=== PATIENT | male | born 1975 | race Caucasian/White ===

== ENCOUNTER 2016-05-02 19:27 | Emergency (ER) ==
[2016-05-02] MEDS ORDERED: ASPIRIN PO STA (19:29)
[2016-05-02] MEDS ORDERED: NITROGLYCERIN SL PRN (19:29)
--- NOTE | 2016-05-02 19:34 | ED EKG INTERP ---
EKG Interpretation - EKG Time of EKG reading by physician:: 19:33 EKG Read and Signed by:: Ashwin Joyce EKG Interpretation (*Must complete 3 of following elements*): Abnormal (Minimal voltage criteria for LVH, may be normal variant; T wave abnormality, consider inferolateral ischemia) Rate: 96 Rhythm: Normal sinus rhythm Attestation - Scribe Verification/Attestation Scribe:: Iván Lee Acting as Scribe for:: Ashwin Joyce Scribe documention review:: This chart was documented by a scribe and accurately reflects the service the provider performed and the decisions made by the provider.
[2016-05-02 20:17] LABS: MANUAL DIFF NEEDED? NO
--- NOTE | 2016-05-02 20:17 | PROVIDER DOCUMENTATION ---
HPI-Chest Pain - General Source: patient - History of Present Illness-CP Location: reports: other (L anterior chest) Chest Pain Radiation: reports: back (R scapula) Quality of Pain: reports: burning, other ("Feels like heartburn") Severity in ED: severe Onset/Duration: 1-3 hours ago Timing: still present, constant Modifying Factors: worse with: breathing Associated Symptoms: reports: back pain (R scapula), diaphoresis, fever/chills, heartburn, nausea, vomiting. denies: abdominal pain, dizziness, edema, fatigue , headache, rash, shortness of breath, swelling/lump in chest, syncope, weakness <Iván Lee - Last Filed: 05/02/16 20:46> <Ashwin Joyce - Last Filed: 05/02/16 23:21> - General Chief Complaint: Chest Pain Stated Complaint: CP, GALBLADDER PAIN Time Seen by Provider: 05/02/16 19:33 Allergies/Adverse Reactions: Patient Allergies Allergy/AdvReac Type Severity Reaction Status Date / Time codeine AdvReac Severe NAUSEA/VOMI Verified 05/02/16 19:38 TING Home Medications: Home Medication List Medication Instructions Recorded Confirmed Last Taken Type Hydrocodone/Acetaminophen [[place] 1 each PO Q4-6H PRN PRN #20 tablet 05/02/16 Unknown Rx 7.5-325 Tablet] Ketorolac [Toradol] 10 mg PO Q6H PRN PRN #20 tablet 05/02/16 Unknown Rx Ondansetron [Zofran Odt] 8 mg PO Q8H PRN #20 tab.rapdis 05/02/16 Unknown Rx - History of Present Illness-CP Nature of Presenting Problem: Pt is a 40 yom who presents to ER with CC of L anterior chest pain that radiates straight through to his R scapula with onset of 1 hour and 40 minutes ago. Pt reports that he was sen at [facility] yesterday and diagnosed with gall stones and told that he would need to call his surgeon, but to come to ER if symptoms change or get worse. Pt reports that his C/P is new, and describes it as feeling like heartburn. (Iván Lee) Review of Systems - Adult - REVIEW OF SYSTEMS - ADULT Constitutional: reports: chills, night sweats. denies: fever, fatique Eyes: reports: no symptoms reported Ears, Nose, Mouth & Throat: reports: no symptoms reported Cardiovascular: reports: chest pain. denies: edema, heart murmur, irregular heart rate, palpitations, poor circulation, syncope Respiratory: reports: no symptoms reported Gastrointestinal: reports: abdominal pain, frequent heartburn, nausea, poor appetite, vomiting. denies: hematemesis, constipation, diarrhea, difficulty swallowing, rectal bleeding Genitourinary: reports: no symptoms reported Musculoskeletal: reports: back pain (R scapula). denies: bone pain, frequent leg cramps, joint pain, joint swelling, muscle aches, muscle weakness, neck pain Integumentary: reports: no symptoms reported Neurological: reports: no symptoms reported Psychiatric: reports: no symptoms reported Endocrine: reports: no symptoms reported Hematologic/Lymphatic: reports: no symptoms reported Allergic/Immunologic: reports: no symptoms reported All Other Systems: Reviewed and Negative <Iván Lee - Last Filed: 05/02/16 20:46> Past History - Adult - PAST MEDICAL HISTORY-ADULT Review of Records: reports: Nursing Assessment Review, Medications Reviewed - IMMUNIZATION STATUS Childhood Immunizations: See Nurse Assessment Flu Vaccine: See Nurse Assessment <Iván Lee - Last Filed: 05/02/16 20:46> Physical Exam-General - PHYSICAL EXAM-ADULT Initial Vital Signs Reviewed: Yes - CONSTITUTIONAL General Appearance: appears well, alert, moderate distress, anxious. negative: obese, thin, obtunded, combative - RESPIRATORY Respiratory: chest non-tender, lungs clear, normal breath sounds. negative: respiratory distress, decreased breath sounds, accessory muscle use, wheezing - CARDIOVASCULAR Cardiovascular: normal peripheral pulses, regular rate, rhythm (borderline tachycardic), other (HTN (200/100)) - CHEST (BREASTS) Chest/Breast: no masses/lumps, no tenderness. negative: nipple discharge, tenderness, mass/lump noted - GASTROINTESTINAL (ABDOMEN) Abdominal Exam: normal bowel sounds, non tender, soft. negative: abnormal bowel sounds, distended, tenderness, mass - MUSCULOSKELETAL Back Exam: no CVA tenderness, no vertebral tenderness. negative: CVA tenderness , decreased range of motion, muscle spasm, swelling, vertebral tenderness Extremity: normal range of motion, non-tender, normal gait. negative: deformity , erythema, inflammation, pedal edema, swelling, tenderness - NEUROLOGIC Neurologic: grossly normal, no motor/sensory deficits - PSYCHIATRIC Psych/Mental Status: normal thought content, normal thought process, oriented x 3, anxious <Iván Lee - Last Filed: 05/02/16 20:46> Progress - REASSESSMENT Reassessment #1 Time Reassessed: 20:46 Status: other (Dr. Jyoce discussed results of pt's first set of lab results and continued POC.) - XRAY 1 XRAY: Bilateral XRAY Study: Chest Impression: See EMR Report XRAY Interpretation: Normal <Iván Lee - Last Filed: 05/02/16 20:46> Departure <Iván Lee - Last Filed: 05/02/16 20:46> - Departure Time of Disposition Order: 23:16 Certified Medical Emergency: Emergent <Ashwin Joyce - Last Filed: 05/02/16 23:21> - Departure DIAGNOSIS: Biliary colic Disposition: HOME 01 Condition: Good Additional Instructions: ED Follow Up Instructions: You have been treated by a care provider in the Emergency Department. These instructions are being provided to you so you can have an understanding of how to care for yourself upon discharge. Upon discharge from the Emergency Department, you are responsible for making arrangements for follow-up care by a physician of your choice. Take all prescribed medications as directed. Return to the Emergency Department immediately for any new or worsening symptoms. You may call the Physician Referral phone number at [phone] to obtain a list of Physicians who are taking new patients. Prescriptions: Hydrocodone/Acetaminophen [G[place] 7.5-325 Tablet] 1 each PO Q4-6H PRN PRN #20 tablet PRN Reason: Pain Ketorolac [Toradol] 10 mg PO Q6H PRN PRN #20 tablet PRN Reason: Pain Ondansetron [Zofran Odt] 8 mg PO Q8H PRN #20 tab.rapdis Referrals: None,PCP [Primary Care Provider] - Cristian Manzo MD [STAFF PHYSICIAN] - Attestation - Scribe Verification/Attestation Scribe:: Iván Lee Acting as Scribe for:: Ashwin Joyce Scribe documention review:: This chart was documented by a scribe and accurately reflects the service the provider performed and the decisions made by the provider. <Iván Lee - Last Filed: 05/02/16 20:46> Physician Attestation
[2016-05-02 20:18] LABS: BASO% 0.3 % (0.0-0.8); EOS# 0.13 X1000 (0.0-0.7); EOS% 1.1 % (0.0-10.0); HEMATOCRIT 49.8 % (42.0-52.0); IMM GRAN# 0.03 X1000 (0.0-0.04); IMM GRAN% 0.2 % (0.0-0.5); LYMPH# 2.54 X1000 (1.2-3.4); MCH 29.2 PG (27-31); MCHC 34.1 g/dL (33-37); MCV 85.6 FL (81-99); MONO# 1.19 X1000 (0.11-0.59); MONO% 9.9 % (1.7-9.3); MPV 10.2 FL (7.4-10.4); NEUT% 67.5 % (42.2-75.2); PLT 275 X1000 (130-400); RBC 5.82 XMIL (4.7-6.1)
[2016-05-02] MEDS ORDERED: ZOFRAN IV ONE (20:23)
[2016-05-02] MEDS ORDERED: TORADOL IV ONE (20:23)
[2016-05-02] MEDS ORDERED: DILAUDID IV ONE (20:23)
[2016-05-02] MEDS ORDERED: LABETALOL IV ONE (20:25)
[2016-05-02 20:27] LABS: INR 1.07; PROTIME 11.3 Seconds (9.2-11.7); PTT 22.3 Seconds (22.0-36.0)
[2016-05-02 20:32] LABS: CALCIUM 9.4 mg/dL (8.8-10.2); POTASSIUM 4.2 mmol/L (3.5-5.1); TOTAL BILIRUBIN 0.33 mg/dL (0.20-1.00); TOTAL PROTEIN 6.9 g/dL (6.3-8.3)
[2016-05-02 20:53] LABS: CK INDEX 1.7 (0.0-2.5); CK-MB 6.07 ng/mL (0.0-5.0)
--- NOTE | 2016-05-02 22:26 | ED EKG INTERP ---
EKG Interpretation - EKG Time of EKG reading by physician:: 22:18 EKG Read and Signed by:: Ashwin Joyce EKG Interpretation (*Must complete 3 of following elements*): Abnormal (ST & T wave abnormality, consider inferolateral ischemia) Rate: 82 Rhythm: Normal sinus rhythm Attestation - Scribe Verification/Attestation Scribe:: Iván Lee Acting as Scribe for:: Ashwin Joyce Scribalexandra documention review:: This chart was documented by a scribe and accurately reflects the service the provider performed and the decisions made by the provider.
[2016-05-02 23:16] LABS: CK INDEX 1.7 (0.0-2.5); CK-MB 5.43 ng/mL (0.0-5.0)
[2016-05-02 23:25] VITALS: BP 132/86
--- NOTE | 2016-05-03 07:37 | EKG Report ---
Test Performed on : 05/02/2016 10:18:51 PM Test Reason : cp Blood Pressure : / mmHG Vent. Rate : 082 BPM Atrial Rate : 082 BPM P-R Int : 186 ms QRS Dur : 082 ms QT Int : 342 ms P-R-T Axes : 046 062 -55 degrees QTc Int : 399 ms Normal sinus rhythm. ST & T wave abnormality, consider inferolateral ischemia Abnormal ECG When compared with ECG of 02-MAY-2016 19:32, (Unconfirmed) No significant change was found Unconfirmed Result
--- NOTE | 2016-05-03 07:40 | EKG Report ---
Test Performed on : 05/02/2016 7:32:33 PM Test Reason : Chest Pain Blood Pressure : / mmHG Vent. Rate : 096 BPM Atrial Rate : 096 BPM P-R Int : 168 ms QRS Dur : 082 ms QT Int : 318 ms P-R-T Axes : 054 076 -72 degrees QTc Int : 401 ms Normal sinus rhythm. Minimal voltage criteria for LVH, may be normal variant T wave abnormality, consider inferolateral ischemia Abnormal ECG When compared with ECG of 09-JUN-2009 15:46, Vent. rate has increased BY [address] no longer elevated in Inferior leads ST no longer elevated in Lateral leads T wave inversion now evident in Inferior leads T wave inversion now evident in Lateral leads Unconfirmed Result
--- NOTE | 2016-05-03 08:36 | Diag Imaging Result Document ---
PROCEDURE NAME: CHEST-2 VIEWS - 05/02/2016 FRONTAL AND LATERAL CHEST, TWO VIEWS: FINDINGS: The lungs are well expanded. The heart is not enlarged. The vessels are not distended. There are no infiltrates. No pleural effusions. No consolidation. No free air beneath the diaphragm. IMPRESSION: No acute abnormality.
== END 2016-05-02 23:32 | disposition home or self-care (01) ==
LOC: ED 19:27
DX: K80.50 Calculus of bile duct without cholangitis or cholecystitis without obstruction (principal); R07.9 Chest pain, unspecified; R68.83 Chills (without fever); R61 Generalized hyperhidrosis; R10.9 Unspecified abdominal pain; R12 Heartburn; R11.2 Nausea with vomiting, unspecified; M25.511 Pain in right shoulder; R00.0 Tachycardia, unspecified; I10 Essential (primary) hypertension; R94.31 Abnormal electrocardiogram [ECG] [EKG]
CPT/HCPCS: 71020; 80053; 82550; 82553; 83690; 83735; 83880; 84484; 85025; 85610; 85730; 93005; J1170; J1885; J2405

== ENCOUNTER 2016-05-06 09:50 | Day surgery (SDC) ==
[2016-05-06] MEDS ORDERED: MARCAINE 0.25% PF/EPI 1:200,000 ONE (11:59)
[2016-05-06] MEDS ORDERED: LR 1,000 ML ONE (11:59)
[2016-05-06] MEDS ORDERED: SODIUM CHLORIDE 0.9% ONE (11:59)
[2016-05-06] MEDS: KEFZOL 2 GM/D5W 50 ML ONE ×2 (12:21→12:38)
[2016-05-06] MEDS: LR 1,000 ML ONE ×2 (12:22→12:38)
[2016-05-06] MEDS: DILAUDID ONE ×2 (14:25→14:30)
--- NOTE | 2016-05-06 14:37 | OPERATIVE NOTE ---
PROCEDURE DATE: 05/06/2016 PREOPERATIVE DIAGNOSIS: Symptomatic cholelithiasis. POSTOPERATIVE DIAGNOSIS: Symptomatic cholelithiasis. PROCEDURE PERFORMED: Laparoscopic cholecystectomy. ESTIMATED BLOOD LOSS: 15 mL. COMPLICATIONS: None. ANESTHESIA: General. SPECIMENS: Gallbladder. OPERATIVE INDICATION: This is a 40-year-old male with colicky right upper quadrant abdominal pain. There were stones on ultrasound. LFTs were normal. Cholecystectomy was indicated. OPERATIVE FINDINGS: There was a mildly inflamed gallbladder that was quite distended with small stones within. Otherwise, normal anatomy. Operative risks benefits and alternatives with the patient and he consented to the procedure. DETAILS OF OPERATION: He was seen in the preoperative area. Surgery to be performed confirmed. He was taken to the operating room, placed in supine position. General anesthesia induced without complication. All bony prominence were padded. Preincisional antibiotics were administered. His abdomen was prepped with chlorhexidine and draped in usual fashion after hair was removed with clippers. Time-out was performed between nursing, surgical, anesthesia staff. All agreed on the procedure. A curvilinear infraumbilical incision was made and dissection was carried down to the level of the fascia. The fascia was incised along the midline and access was gained under direct visualization. A 12 mm Loretta trocar was placed. The abdomen was insufflated to 15 mmHg. Three 5 mm trocars were placed along the upper abdomen, 1 in the epigastrium after infiltration of the peritoneum, 1 in the midclavicular line off the costal margin, 1 more laterally. The gallbladder was grasped and retracted cephalad. Starting laterally and progressing medially using blunt dissection, we stripped the peritoneum off the infundibulocystic junction exposing the cystic duct. We dissected this out widely and confirmed a critical view with the liver visualized through this triangle. There was a large calots node that was enlarged over this area and we took this down with electrocautery. The duct was very small and normal caliber , and we were able to confirm the usual anatomy. As such, we doubly clipped the duct and divided it. This facilitated exposure of the cystic artery which was doubly clipped and divided. We began removing the gallbladder. There was a more posterior small arterial branch near the gallbladder. We clipped this and divided it as well. There was some oozing noted in the area of the clips, but with observation gentle pressure, this became hemostatic. We removed the gallbladder from the fossa without any rupture of the gallbladder or spillage of stones. We placed it in an EndoCatch bag, copiously irrigated the abdomen and again inspected this area that had some bleeding noted previously. There was no bleeding noted. There was good closure of the cystic duct with no bile leakage. We removed the trocars under direct visualization. Hemostasis was noted. We then again inspected the gallbladder fossa with lower insufflation pressures and no bleeding was noted. We desufflated the abdomen and brought the gallbladder out through the umbilical incision, closed the fascia along midline with 0 Vicryl sutures in an interrupted fashion. Skin was closed with 4-0 Monocryl. Counts correct x2. Dermabond was applied. He tolerated the procedure well. There were no identified complications. He was transferred to the PACU in good condition. I spoke with the family. MTDD
[2016-05-06] MEDS ORDERED: DILAUDID ONE (14:44)
[2016-05-06] MEDS ORDERED: DIPRIVAN 1% ONE (14:45)
[2016-05-06] MEDS ORDERED: FENTANYL ONE (14:45)
[2016-05-06] MEDS ORDERED: CLAVE SECONDARY SET 11953 ONE (14:55)
[2016-05-06] MEDS ORDERED: ANESTHESIA PB SET 88 IN 5742 ONE (14:55)
[2016-05-06] MEDS ORDERED: NORCO-7.5 PO PRN (15:12)
[2016-05-06] MEDS ORDERED: ZOFRAN IV PRN (15:12)
[2016-05-06] MEDS ORDERED: NORCO-7.5 ONE (15:30)
[2016-05-06 17:13] VITALS: BP 110/70
== END 2016-05-06 17:44 | disposition home or self-care (01) ==
LOC: OPS 09:50
PROVIDERS: ATTEND Surgery
DX: K80.10 Calculus of gallbladder with chronic cholecystitis without obstruction (principal)
CPT/HCPCS: 88304; C1751; J0690; J1170; J3010; J7120; Q9966